=== PATIENT | male | born 1995 | race Hispanic/Latino ===

== ENCOUNTER 2016-10-03 10:09 | Emergency (ER) | payer OTHER ==
[2016-10-03 10:15] VITALS: PULSE 98; TEMP 98; O2SAT 100
[2016-10-03 10:16] VITALS: BMI 19.6
[2016-10-03 10:39] VITALS: RESP 16
[2016-10-03] MEDS ORDERED: Sodium Chloride 0.9% 1,000 ML IV STA (10:56)
--- NOTE | 2016-10-03 11:40 | ED PDOC ---
HPI: General Adult Time Seen by Provider: 10/03/16 11:28 Chief Complaint (Nursing): Wound Check Chief Complaint (Provider): eval History Per: Patient History/Exam Limitations: no limitations Additional Complaint(s): 21yoM in Ed for eval of left antecubital after using IV drug-a version of aderral. states he attempted three times suspects he did have access to his vein. pt feels that he has reddness to area but no pain no warmth and is concerned about an abscess formation. denies fever chills nausea vomiting. pt also feels very jittery, anxious and states he has some tremors to hands b/l, denies palpitations, dizziness Past Medical History Reviewed: Historical Data, Nursing Documentation, Vital Signs Vital Signs: Last Vital Signs Temp 98 F 10/03/16 10:14 Pulse 98 H 10/03/16 10:14 Resp 16 10/03/16 10:31 BP 144/92 H 10/03/16 10:14 Pulse Ox 100 10/03/16 11:44 - Medical History PMH: Anxiety (takes Klonopin) Denies: Chronic Kidney Disease - Family History Family History: States: Unknown Family Hx - Immunization History Hx Tetanus Toxoid Vaccination: Yes - Home Medications Home Medications: Ambulatory Orders Medication Instructions Recorded ALPRAZolam [Xanax] 0.25 mg PO TID PRN #6 tab 06/25/16 Cephalexin [cephalexin] 500 mg PO BID #20 cap 10/03/16 - Allergies Allergies/Adverse Reactions: Allergies Allergy/AdvReac Type Severity Reaction Status Date / Time No Known Allergies Allergy Verified 04/10/16 07:20 Review of Systems ROS Statement: Except As Marked, All Systems Reviewed And Found Negative Constitutional: Negative for: Fever, Chills, Sweats Musculoskeletal: Negative for: Arm Pain Skin: Positive for: Bruising Physical Exam - Reviewed Nursing Documentation Reviewed: Yes Vital Signs Reviewed: Yes - Physical Exam Appears: Positive for: Non-toxic, No Acute Distress Head Exam: Positive for: ATRAUMATIC, NORMAL INSPECTION, NORMOCEPHALIC Skin: Positive for: Normal Color, Warm, DRY Eye Exam: Positive for: EOMI, Normal appearance, PERRL ENT: Positive for: Normal ENT Inspection Cardiovascular/Chest: Positive for: Regular Rate, Rhythm Respiratory: Positive for: CNT, Normal Breath Sounds Back: Positive for: Normal Inspection Extremity: Positive for: Other (left arm: no swelling, very mild bruising noted to antecubital area, no fomration of abscess noted no induration no ertyhema no streaking no warthm good pulses) Neurologic/Psych: Positive for: Alert, Oriented - ECG O2 Sat by Pulse Oximetry: 100 - Progress ED Course And Treament: PT will get NS fluids and eKG and re-eval Medical Decision Making Medical Decision Making: pt feels much improved. advsied to refrain from IV drug use. will advise to use warm compress to are to prevent infection if noted with swelling, fever, pain to return to ED. Disposition - Clinical Impression Clinical Impression: Encounter for evaluation of wound - Patient ED Disposition Is Patient to be Admitted: No Counseled Patient/Family Regarding: Studies Performed, Diagnosis, Need For Followup, Rx Given - Disposition Disposition: Routine/Home Disposition Time: 11:59 Condition: STABLE Prescriptions: Cephalexin [cephalexin] 500 mg PO BID #20 cap Instructions: Abscess (ED)
[2016-10-03 12:41] VITALS: BP 125/81
--- NOTE | 2016-10-03 13:17 | CARD ---
APPROVED REPORT EKG Measurement Heart [id number] <Conclusion> Normal sinus rhythm Normal ECG
== END 2016-10-03 12:40 | disposition home or self-care (01) ==
LOC: H.ER 10:09
DX: Z43.8 Encounter for attention to other artificial openings (principal); S41.102A Unspecified open wound of left upper arm, initial encounter

== ENCOUNTER 2017-01-21 22:19 | Emergency (ER) | payer OTHER ==
[2017-01-21 22:19] VITALS: BMI 19.6
[2017-01-21 22:28] VITALS: O2SAT 100
--- NOTE | 2017-01-21 23:38 | ED PDOC ---
HPI: Seizure Time Seen by Provider: 01/21/17 23:23 Chief Complaint (Nursing): Seizure Chief Complaint (Provider): seizure History Per: Patient, Other (significant other) Recent Seizure Activity Began: Just Before Arrival Number Of Seizures: One Quality Of Seizure: Generalized Associated Symptoms: Other (bit lip, chest sore) Additional History Per: Patient, EMS, Family Additional Complaint(s): 21 y/o male history of anxiety brought in by EMS for witnessed seizure. Patient states he was sitting on his bed and began to feel lightheaded. Patient 's significant other states she heard patient gasping and when she went to check on him she noted his whole body convulsing, foaming at the mouth, and eyes moving back and forth. SYmtpoms lasted one minute then resolved, but significant other states patient was still unable to speak at that time. Patient notes mild headache and soreness to chest after seizure. Patient admits to similar (unwitnessed) episode in past but has never been seen by a physician for it. Patient states he takes a supplemental tea (Kratom) for anxiety, and thinks that may have caused it. Denies fever, cough, congestion, neck pain, vision changes, extremity numbness/weakness, shortness of breath, palpitations, back pain, urine/bowel incontinence. Against Medical Advice - AMA Patient Left Against Medical Advice: The patient declines admission to the hospital and wishes to leave the Emergency Department. This action is against my medical advice. This decision was made with informed refusal. The patient was told that admission to the hospital is necessary. Explanation of the reasons why were discussed. The risks of leaving were explained to the patient and include, but are not limited to, worsening of known or currently unknown conditions, permanent disability and from undiagnosed or untreated conditions. The patient has the capacity to make this informed decision and understands my explanation of the current medical problem and risks of leaving. The patient voluntarily accepts these risks and signed an AMA form documenting our conversation. The patient was given the opportunity to ask questions and reconsider. The patient was encouraged to return to the Emergency Department at any time for further care. Past Medical History Reviewed: Historical Data, Nursing Documentation, Vital Signs Vital Signs: Last Vital Signs Temp 98.5 F 01/22/17 01:39 Pulse 93 H 01/22/17 01:39 Resp 20 01/22/17 01:39 BP 124/73 10/04/17 01:39 Pulse Ox 100 01/22/17 03:00 - Medical History PMH: Anxiety (takes Klonopin) Denies: Chronic Kidney Disease - Surgical History Surgical History: No Surg Hx - Family History Family History: States: Unknown Family Hx - Living Arrangements Living Arrangements: Alone - Social History Current smoker - smoking cessation education provided: No Alcohol: Occasional Drugs: Denies - Immunization History Hx Tetanus Toxoid Vaccination: Yes - Home Medications Home Medications: Ambulatory Orders Medication Instructions Recorded ALPRAZolam [Xanax] 0.25 mg PO TID PRN #6 tab 06/25/16 Cephalexin [cephalexin] 500 mg PO BID #20 cap 10/03/16 - Allergies Allergies/Adverse Reactions: Allergies Allergy/AdvReac Type Severity Reaction Status Date / Time No Known Allergies Allergy Verified 01/21/17 22:24 Review of Systems ROS Statement: Except As Marked, All Systems Reviewed And Found Negative Neurological: Positive for: Seizures, Headache Physical Exam - Reviewed Nursing Documentation Reviewed: Yes Vital Signs Reviewed: Yes - Physical Exam Appears: Positive for: Well, Non-toxic, No Acute Distress Head Exam: Positive for: ATRAUMATIC, NORMAL INSPECTION, NORMOCEPHALIC Skin: Positive for: Normal Color Eye Exam: Positive for: Normal appearance, EOMI, PERRL ENT: Positive for: Normal ENT Inspection, Other (abrasion inner lower lip) Cardiovascular/Chest: Positive for: Regular Rate, Rhythm Respiratory: Positive for: Normal Breath Sounds Gastrointestinal/Abdominal: Positive for: Normal Exam Back: Positive for: Normal Inspection Extremity: Positive for: Normal ROM Neurologic/Psych: Positive for: Alert, Oriented - Laboratory Results Result Diagrams: 01/21/17 23:52 01/21/17 23:52 - ECG ECG: Positive for: Viewed By Me (reviewed by ED attending) ECG Rhythm: Positive for: Sinus Tachycardia O2 Sat by Pulse Oximetry: 100 - Radiology X-Ray: Viewed By Me X-Ray Interpretation: No Acute Disease - Progress ED Course And Treament: labs, ekg, chest xray, CT head, urine, IV fluids EXAM: CT Head Without Intravenous Contrast CLINICAL HISTORY: The patient is a 21 years male; Signs and symptoms; Other: Seizures; Additional info: Seizure 01/21/2017 11:34 PM TECHNIQUE: Axial computed tomography images of the head/brain without intravenous contrast. All CT scans at this facility use one or more dose reduction techniques, viz.: automated exposure control; ma/kV adjustment per patient size (including targeted exams where dose is matched to indication; i.e. head); or iterative reconstruction technique. Coronal and sagittal reformatted images were created and reviewed. COMPARISON: CT - HEAD W/O CONTRAST 04/10/2016 2:50:37 AM FINDINGS: Brain: Streak artifact limits evaluation of the skull base. No evidence of acute intracranial hemorrhage. Correlate clinically. . No significant white matter disease. No edema. Ventricles: Unremarkable. No ventriculomegaly. Bones/joints: Unremarkable. No acute fracture. Soft tissues: Unremarkable. Sinuses: Unremarkable as visualized. No acute sinusitis. Mastoid air cells: Unremarkable as visualized. No mastoid effusion. Other findings: Pineal calcification. IMPRESSION: Streak artifact limits evaluation of the skull base. No evidence of acute intracranial hemorrhage. Correlate clinically. On re-eval, patient states he is feeling better. Calls placed to Dr. Silva, Neurology on-call, without response. On re-eval, patient states he does not wish to stay in the ED anymore and would like to go home. Patient advised he will need to sign out against medical advice, and risks of doing so. Patient awake, alert, oriented x3. Patient was given name of Neurologist to follow up with with instructions to call this am. Advised to d/c supplement. Return to ED for worsening/concerning symptoms. Disposition - Clinical Impression Clinical Impression: Seizure-like activity, Left against medical advice - Disposition Referrals: Carrillo Zapata MD [Staff Provider] - Disposition: Against Medical Advice Disposition Time: 03:40 Condition: IMPROVED Instructions: Against Medical Advice (ED), New-Onset Seizure in Adults (ED) Forms: [facility] ED School/Work Excuse
[2017-01-21] MEDS: Sodium Chloride 0.9% 1,000 ML IV STA (23:44)
[2017-01-21 23:56] LABS: BASO % 0.3 % (0.0-2.0); EOS # 0.1 K/uL (0.0-0.7); EOS % 1.5 % (0.0-4.0); HEMATOCRIT 40.5 % (35.0-51.0); LYMPH # 1.9 K/uL (1.0-4.3); LYMPH % 26.6 % (20.0-40.0); MEAN CELL VOLUME 91.6 fl (80.0-94.0); MEAN CORPUSCULAR HEMOGLOBIN 30.8 pg (27.0-31.0); MEAN CORPUSCULAR HGB CONC 33.6 g/dL (33.0-37.0); MONO # 0.5 K/uL (0.0-0.8); MONO % 6.6 % (0.0-10.0); NEUT # 4.6 K/uL (1.8-7.0); NRBC % 0.1 % (0.0-0.0); WHITE BLOOD COUNT 7.1 K/uL (4.8-10.8)
[2017-01-22 00:04] LABS: ALB/GLOB RATIO 1.6 (1.0-2.1); ALKALINE PHOSPHATASE 68 U/L (38-126); ALT/SGPT 26 U/L (21-72); AST/SGOT 27 U/L (17-59); BILIRUBIN,TOTAL 0.3 mg/dl (0.2-1.3); BLOOD UREA NITROGEN 10 mg/dl (9-20); CALCIUM 10.1 mg/dL (8.4-10.2); CARBON DIOXIDE 23 mmol/L (22-30); CHLORIDE 103 mmol/L (98-107); GFR AFRICAN-AMERICAN > 60; GLUCOSE,RANDOM 100 mg/dL (75-110); POTASSIUM 3.7 MMOL/L (3.6-5.0); SODIUM 145 mmol/l (132-148); TOTAL PROTEIN 7.7 G/DL (6.3-8.2)
[2017-01-22 00:45] LABS: ALCOHOL SERUM < 10 mg/dl (0-10)
[2017-01-22 01:02] LABS: RBC URINE 2 /hpf (0-3); URINE BILIRUBIN NEGATIVE (NEGATIVE); URINE BLOOD NEGATIVE (NEGATIVE); URINE COLOR YELLOW (YELLOW); URINE GLUCOSE (UA) NEG (Normal); URINE KETONE NEGATIVE (NEGATIVE); URINE LEUKOCYTE ESTERASE NEG Leu/uL (Negative); URINE PROTEIN 30 mg/dL (NEGATIVE); URINE UROBILINOGEN 0.2-1.0 mg/dL (0.2-1.0); WBC URINE 9 /hpf (0-5)
[2017-01-22 01:40] VITALS: BP 124/73; PULSE 93; RESP 20; TEMP 98.5
--- NOTE | 2017-01-22 09:01 | CT ---
PROCEDURE: CT HEAD WITHOUT CONTRAST. HISTORY: seizure COMPARISON: 04/10/2016 TECHNIQUE: Axial computed tomography images were obtained through the head/brain without intravenous contrast. Radiation dose: Total exam DLP = 1356 mGy-cm. This CT exam was performed using one or more of the following dose reduction techniques: Automated exposure control, adjustment of the mA and/or kV according to patient size, and/or use of iterative reconstruction technique. FINDINGS: HEMORRHAGE: No intracranial hemorrhage. BRAIN: No mass effect or edema. No atrophy or chronic microvascular ischemic changes. VENTRICLES: Unremarkable. No hydrocephalus. CALVARIUM: Unremarkable. PARANASAL SINUSES: Unremarkable as visualized. No significant inflammatory changes. MASTOID AIR CELLS: Unremarkable as visualized. No inflammatory changes. OTHER FINDINGS: Streak artifact limits evaluation of the skullbase. Pineal calcification. IMPRESSION: Streak artifact limits evaluation of the skullbase. No evidence of acute intracranial hemorrhage. Pineal calcification. If focal neurologic deficit persists, consider MRI. These findings were preliminarily reported at 12:10 a.m. on 01/22/[address] Gay Frost from [facility].
--- NOTE | 2017-01-22 11:30 | RAD ---
HISTORY: seizure COMPARISON: No prior. FINDINGS: LUNGS: The lungs are well inflated and clear. PLEURA: No significant pleural effusion identified, no pneumothorax apparent. CARDIOVASCULAR: Normal. OSSEOUS STRUCTURES: No significant abnormalities. VISUALIZED UPPER ABDOMEN: Normal. OTHER FINDINGS: None. IMPRESSION: No acute findings.
--- NOTE | 2017-01-23 10:18 | CARD ---
APPROVED REPORT EKG Measurement Heart [id number] CT [id number] <Conclusion> Sinus tachycardia Otherwise normal ECG
== END 2017-01-22 04:03 | disposition left against medical advice (07) ==
LOC: H.ER 22:19
DX: G40.909 Epilepsy, unspecified, not intractable, without status epilepticus (principal)
CPT/HCPCS: 70450; 71010; 80053; 80320; 80324; 80345; 80346; 80349; 80353; 80358; 80361; 81003; 82948; 83992; 84484; 85025; 93005; 99285; J7040